=== PATIENT | female | born 1970 | race African-American/Black ===

== ENCOUNTER 2017-04-19 10:24 | Inpatient (IN) | payer OTHER ==
[~2017-04-19] VITALS: Ht 172.7 cm; Wt 71.7 kg
[~2017-04-19 10:24] MED LIST: ESKALITH300 M3 PO; ZYPREXA10 MG PO
[2017-04-19] MEDS ORDERED: NEURONTIN300 M1 PO (10:32)
--- NOTE | 2017-04-19 12:11 | NUR ---
Patient taken to bed 05 via wheelchair per pt caregiver.
--- NOTE | 2017-04-19 12:13 | NUR ---
PT BIB EXHUSBAND FOR EVALUATION OF INCREASED LETHARGY. PT'S EX STS PT WAS VERY HARD TO ROUSE THIS AM. HX PSYCHIATRIC DX. PT STS FELL 2 DAYS AGO PAIN HER HEAD & ABRASION L KNEE.DENIES LOC OR N/V/D; SKIN IS PINK/WARM/DRY; AAOX4 WITH EVEN AND STEADY GAIT; LUNGS CLEAR BL; HR EVEN AND REGULAR; PT DENIES ANY FEVER, CP, SOB, OR COUGH AT THIS TIME; PATIENT STATES PAIN OF 4/10 AT THIS TIME; VSS; PATIENT POSITIONED FOR COMFORT; HOB ELEVATED; BEDRAILS UP X2; BED DOWN. ER MD MADE AWARE OF PT STATUS.
--- NOTE | 2017-04-19 12:25 | NUR ---
Patient being evaluated by DR HUNG at bedside.
[2017-04-19] MEDS ORDERED: NACL 0.9% 1,000 ML IV ONE (13:15)
--- NOTE | 2017-04-19 13:15 | NUR ---
LAB AT BEDSIDE.
[2017-04-19] MEDS ORDERED: POTASSIUM CHLORIDE 20% 40 MEQ/15 ML UDC PO ONE (13:55)
[2017-04-19] MEDS ORDERED: KCL 20 MEQ/WATER INJ PREMIX 200 ML IV ONE ×2 (13:55→23:15)
--- NOTE | 2017-04-19 14:51 | NUR ---
PT TAKEN TO CT.
--- NOTE | 2017-04-19 15:00 | NUR ---
RECEIVED REPORT FROM ER NURSE. WILL GET ROOM READY AND AWAIT PT'S ARRIVAL.
--- NOTE | 2017-04-19 15:04 | NUR ---
REPORT TO ALEXANDRU AGUILAR.
--- NOTE | 2017-04-19 15:04 | NUR ---
Patient will be admitted to care of DR OCONNOR . Admited to TELE. Will go to room 123A. Belongings list completed. Report to ALEXANDRU AGUILAR.
--- NOTE | 2017-04-19 15:10 | NUR ---
ARRIVED ON THE UNIT WITH 2 ER NURSES. PT IS AWAKE AND ALERT. INTRODUCED OURSELVES AND UPDATED THE BOARD. PT IS 46/F. IV ON R HAND 24G, NS AND K-RIDER 1/2 IN INFUSING. ONCE 1 FINISHES, WILL START THE SECOND. SKIN IS INTACT. A SCAR ON L KNEE S/P A FALL 2 DAYS AGO. IT IS HEALED. WAS UNABLE TO GET A URINE SAMPLE IN ER. WILL GET ONE HERE. ADMINISTERED THE TELE MONITOR, YELLOW SOCK, ARM BAND, AND SIGN ON DOOR. MRSA SCREENING DONE. PT IS RESTING COMFORTABLY NOW. DENIES PAIN. WILL CONTINUE TO MONITOR PT.
[2017-04-19] MEDS: DEXT 5% /NACL 0.9% 1,000 ML IV SCH (15:35)
[2017-04-19] MEDS ORDERED: MORPHINE SULFATE 2 MG/ML SYR IVP PRN (15:55)
[2017-04-19] MEDS ORDERED: NACL 0.9% 1,000 ML IV SCH (15:55)
[2017-04-19] MEDS ORDERED: ONDANSETRON 4 MG/2 ML VIAL IVP PRN (15:55)
[2017-04-19] MEDS ORDERED: ACETAMINOPHEN 325 MG TAB PO PRN (15:55)
[2017-04-19 16:00] VITALS: BP 85/43
--- NOTE | 2017-04-19 17:10 | NUR ---
R/T HERE TO ASSESS PT. Addendum: 04/19/17 at 1802 by Summer Mansfield RN WRONG PT. DISREGARD NOTE.
--- NOTE | 2017-04-19 17:30 | NUR ---
MOLLY, DOCTOR OF NURSE ANESTHESIA PRACTICE STARTED 2 IV'S, ONE ON EACH ARM. R FA 20G AND L AC 22G. R FA, NS 1 L BOLUS INFUSING. L FA, D5NS AND KRIDER 1/2 IS INFUSING. PT TOLERATED WELL.
[2017-04-19] MEDS: NACL 0.9% 1,000 ML IV SCH (19:05)
--- NOTE | 2017-04-19 19:15 | NUR ---
RECEIVED REPORT FROM AM NURSE. PT IS AOX2, RESPONDS IN A SLOW MATTER. NO S/S OF DISTRESS. NO COMPLAINTS OF PAIN AT THIS TIME. WITH AN IV TO THE LEFT FA, 22 G RUNNING WITH THE FIRST BAG OF K RIDER, INTACT AND PATENT. WITH A RFA 20 G, INTACT AND PATENT. WITH A LEFT SCAB TO THE LEFT KNEE DUE TO A S/P FALL A FEW DAYS AGO. ON TELE MONITORING. REORIENTED PT TO THE UNIT, VERBALIZED UNDERSTANDING. WILL CONTINUE TO MONITOR. ALL NEEDS ATTENDED. CALL LIGHT WITHIN REACH. SAFETY CHECKS IN PLACE.
[2017-04-19 20:00] VITALS: BP 91/51
[2017-04-19] MEDS: GABAPENTIN 300 MG CAP PO SCH (20:19)
[2017-04-19] MEDS: OLANZapine 5 MG TAB PO SCH (20:20)
[2017-04-19] MEDS: LITHIUM CARBONATE 300 MG TAB PO SCH (20:20)
--- NOTE | 2017-04-19 20:20 | NUR ---
DUE MEDS GIVEN TO PATIENT, WELL TOLERATED BY PATIENT. WILL CONTINUE TO MONITOR FOR ANY CHANGES.
--- NOTE | 2017-04-19 21:50 | NUR ---
PAGED DR. HAGAN ([facility]) FOR CRITICAL LAB RESULT, AWAITING CALL BACK.
--- NOTE | 2017-04-19 22:06 | NUR ---
PAGED DR. OAKLEY AGAIN, AWAITING CALL BACK.
--- NOTE | 2017-04-19 22:12 | NUR ---
DR. OAKLEY PAGED BACK, TOLD HIM THE POTASSIUM LAB RESULT OF 2.5 AND THAT SHE IS CURRENTLY RUNNING ON HER SECOND BAG OF POTASSIUM 20 MEQS. NO CHANGE IN ORDERS. NOTED.
--- NOTE | 2017-04-19 22:55 | NUR ---
CHARGE NURSE MIRYAM TALKED TO DR. KAM CHUN IN REGARDS TO PT'S ORDER OF THE 24 HOUR COLLECTION, SAID THAT HE IS GOING TO CANCEL IT AND SAID THAT PT IS FOR STRAIGHT CATH FOR THE URINALYSIS. ALSO WILL ORDER FOR THE PT'S POTASSIUM LEVEL OF 2.5. NOTED AND CARRIED OUT.
[2017-04-20] VITALS (9 sets, daily range): BP systolic 88–122; BP diastolic 48–70
--- NOTE | 2017-04-20 | NUR ---
VITALS STABLE. NO S/S OF DISTRESS. NO COMPLAINTS OF PAIN. WILL CONTINUE TO MONITOR FOR ANY CHANGES.
[2017-04-20] MEDS: DEXT 5% /NACL 0.9% 1,000 ML IV SCH ×2 (01:55→11:55)
--- NOTE | 2017-04-20 02:05 | NUR ---
MADE ROUNDS. PT ASLEEP. NO S/S OF DISTRESS. NO COMPLAINTS OF PAIN. WILL CONTINUE TO MONITOR FOR CHANGES.
--- NOTE | 2017-04-20 04:00 | NUR ---
VITALS STABLE. NO S/S OF DISTRESS. NO COMPLAINTS OF PAIN. WILL CONTINUE TO MONITOR FOR ANY CHANGES.
[2017-04-20] MEDS: NACL 0.9% 1,000 ML IV SCH (05:05)
--- NOTE | 2017-04-20 07:05 | NUR ---
PAGED DR. CHUN AWAITING CALL BACK
--- NOTE | 2017-04-20 07:29 | NUR ---
ENDORSED TO AM SHIFT NURSE FOR CONTINUITY OF CARE IN STABLE CONDITION.
--- NOTE | 2017-04-20 07:32 | NUR ---
RECEIVED PATIENT REPORT AT BEDSIDE FROM NIGHT NURSE. PATIENT IS AAOX2 AND SHOWS NO S/S OF ACUTE DISTRESS ON ROOM AIR. PATIENT IV NOTED ON THE L FA AND R FA SL. IVF'S ARE NOT RUNNING AND FULL BAG OF POTASSIUM IS STILL NOT INFUSED. PER NIGHT NURSE LAB DRAWN FOR POTASSIUM WAS DONE AT 0500 AND 4TH BAG OF POTASSIUM WAS STILL NOT GIVEN AND HAS YET TO BE INFUSED. DR CHUN ORDERED TWO ADDITIONAL 20 MEQ POTASSIUM BAGS FOR 0800 FOR A POTASSIUM LEVEL OF 2.5. WILL NOTIFY [address] HAGAN AND/OR DR CHUN IF HE WOULD LIKE TO STILL ADMINISTER ORDERED BAGS OR PERFORM A LAB DRAW AFTER CURRENT BAG OF 20 MEQ POTASSIUM IS FINISHED. PATIENT IS DENIED PAIN. SKIN IS INTACT. ON TELE MONITOR. FALL PRECAUTION PROTOCOL IN PLACE. PATIENT HAS DELAYED SPEECH AND NEEDS CONSTANT REINFORCEMENT OF POC. BED IS LOWERED, BED ALARM ACTIVATED, AND CALL LIGHT WITHIN REACH. WILL CONTINUE TO MONITOR.
[2017-04-20] MEDS ORDERED: KCL 20 MEQ/WATER INJ PREMIX 100 ML IV SCH ×2 (08:00→11:00)
[2017-04-20] MEDS ORDERED: KCL 20 MEQ/WATER INJ PREMIX 200 ML IV SCH (08:00)
--- NOTE | 2017-04-20 08:00 | NUR ---
PATIENT BP IS 90/48 R ARM AND 88/70 L ARM. PATIENT PLACED ON [place] BP IS NOW 122/56. PATIENT IS ASYMPTOMATIC. DENIES DIZZINESS AND SOB. PATIENT WAS SAT UP AND IS EATING BREAKFAST. WILL CONTINUE TO MONITOR.
[2017-04-20] MEDS: GABAPENTIN 300 MG CAP PO SCH ×2 (08:37→20:48)
[2017-04-20] MEDS: LITHIUM CARBONATE 300 MG TAB PO SCH ×2 (08:40→20:48)
--- NOTE | 2017-04-20 08:45 | NUR ---
ADMINISTERED SCHEDULED MEDICATIONS. HELD LITHIUM 300 MG D/T LITHIUM LEVEL OF 1.4. WILL PAGE DR CHUN REGARDING POTASSIUM LEVEL OF 2.5 LAB DRAWN AT 0500 MAY NOT BE ACCURATE BC LAST POTASSIUM BAG WAS NOT ADMINISTERED UNTIL 0500. WILL RECOMMEND LAB DRAWN FOR POTASSIUM 30 MIN ONCE BAG IS DONE.
--- NOTE | 2017-04-20 08:50 | NUR ---
PATIENT HAD TROUBLE TAKING ALL 6 10 MEQ KDUR TABS. PATIENT HAD ONE AND STATED TO COME BACK TO ADMINISTER REST BC SHE FEELS LIKE SHE WILL THROW UP. WILL COME BACK IN 10 MIN.
[2017-04-20] MEDS ORDERED: POTASSIUM CHLORIDE 10 MEQ TABER PO SCH ×3 (09:00→16:08)
--- NOTE | 2017-04-20 09:00 | NUR ---
PATIENT STATED SHE WOULD LIKE TO FINISH BREAKFAST BEFORE TAKING THE REST OF KDUR MEDICATION.
--- NOTE | 2017-04-20 09:05 | NUR ---
PATIENT BP IS 111/70 SUPINE ON THE L ARM. PATIENT SHOWS NO S/S OF ACUTE DISTRESS WILL CONTINUE TO MONITOR.
--- NOTE | 2017-04-20 09:17 | NUR ---
DR VASQUEZ ALSO OKAYED TO HOLD LITHIUM DOSE THIS AM.
--- NOTE | 2017-04-20 09:17 | NUR ---
DR VASQUEZ CALLED BACK STATED COVERING FOR DR CHUN. DR ORDERED TO DC TWO ORDERED BAGS OF POTASSIUM SCHEDULED THIS AM. GIVE ONE BAG OF 20 MEQ POTASSIUM IV ONCE WITHOUT LIDOCAINE WHEN CURRENT BAG OF POTASSIUM IS FINISHED. ORDER BMP LAB DRAWN ONE HR AFTER LAST BAG OF POTASSIUM IS FINISHED. WILL FOLLOW THROUGH WITH ORDERS. STATED TO HOLD 60 MEQ K DUR FROM THIS AM MEDICATIONS. PATIENT HAS HAD ONE 10 MEQ KDUR WILL NOT ADMINISTER THE REST.
--- NOTE | 2017-04-20 10:32 | NUR ---
ADMINISTERED 20 MEQ POTASSIUM IV. WILL CONTINUE TO MONITOR.
[2017-04-20] MEDS ORDERED: POTASSIUM CHLORIDE 40 MEQ in DEXTROSE 5% 250 ML IV SCH (11:15)
--- NOTE | 2017-04-20 11:21 | NUR ---
PATIENT HAS BEEN SCREENED AND CATEGORIZED MODERATE NUTRITION RISK. PATIENT WILL BE SEEN WITHIN 3-5 DAYS OF ADMISSION. 04/22/17 - 04/24/[address]
--- NOTE | 2017-04-20 11:30 | NUR ---
SPOKE WITH DR OCONNOR REGARDING PATIENT'S ORDERS OF POTASSIUM HE PLACED. UPDATED DR ON PATIENT'S POTASSIUM ORDERS FROM DR VASQUEZ. DR OCONNOR ORDERED TO DC ALL HIS ORDERS OF POTASSIUM 40 MEQ KDUR THREE DOSES AND 40 MEQ POTASSIUM IN D5. WILL NOTIFY OF POTASSIUM WHEN LAB IS DRAWN AT 1400.
--- NOTE | 2017-04-20 13:30 | NUR ---
PATIENT IS SITTING UP EATING LUNCH AND SHOWS NO S/S OF ACUTE DISTRESS ON ROOM AIR. PATIENT DENIES PAIN AND SOB. THE BED IS LOWERED WITH CALL LIGHT WITHIN REACH, AND BED ALARM ACTIVATED.
--- NOTE | 2017-04-20 15:00 | NUR ---
PATIENT WAS SEEN BY DR VASQUEZ AND PATIENT WAS HARD TO AROUSE. PT IS LETHARGIC AND DROWSY. ORDERED TO NOTIFY DR OCONNOR. DR VASQUEZ ORDERED TO HAVE 40 MEQ KCL RIDER WITHOUT LIDOCAINE (2 BAGS), 40 MEQ KCL TABS, AND NS WITH 20 MEQ KCL AT 100 ML/HR AND BMP AT 2000. Addendum: 04/20/17 at 1954 by Lucy Yi RN DR VASQUEZ OKAYED TO DC NS @ 100 ML/HR, AND D5 NS @ 100 ML/HR. Addendum: 04/21/17 at 06 by Lucy Yi RN DR VASQUEZ ALSO ORDERED TO DC ORDER FOR KDUR 60 MEQ PO.
--- NOTE | 2017-04-20 15:10 | NUR ---
PATIENT IS SLEEPING AND SHOWS NO S/S OF ACUTE DISTRESS ON ROOM AIR. THE BED IS LOWERED WITH CALL LIGHT WITHIN REACH, BED ALARM ACTIVATED.
--- NOTE | 2017-04-20 16:30 | NUR ---
NOTIFIED DR VASQUEZ PT IS AAOX2 AND INCONTINENT AND WOULD BENEFIT TO HAVE A GUERRA CATHETER DURING 24HR COLLECTION OF URINE. DR DAVENPORTED TO ORDERED INSERT GUERRA CATHETER.
[2017-04-20] MEDS: POTASSIUM CHL 20 MEQ/NACL 0.9% 1,000 ML IV SCH (16:38)
--- NOTE | 2017-04-20 16:38 | NUR ---
ADMINISTERED SCHEDULED MEDICATIONS. PATIENT COULD NOT TAKE 40 MEQ KDUR TAB, DR VASQUEZ WAS NOTIFIED AND OKAY TO CHANGE TO LIQUID FORM.
[2017-04-20] MEDS: KCL 20 MEQ/WATER INJ PREMIX 200 ML IV SCH ×2 (16:48→20:03)
[2017-04-20] MEDS ORDERED: POTASSIUM CHLORIDE 20% 40 MEQ/15 ML UDC PO SCH (16:59)
--- NOTE | 2017-04-20 17:00 | NUR ---
SPOKE TO DR OCONNOR AND NOTIFIED OF PT'S BRIEF TACHYCARDIA OF 130 HR. WAS ALSO NOTIFIED OF PT BEING LETHARGIC AND ORDERED CT HEAD WITHOUT CONTRAST. PATIENT IS CURRENTLY BEING SEEN BY FAMILY FRIEND AND IS AWAKE AND ALERT AND SHOWS NO S/S OF ACUTE DISTRESS AT THIS TIME WILL CONTINUE TO MONITOR.
--- NOTE | 2017-04-20 17:45 | NUR ---
BEGAN 24 HR URINE COLLECTION. INSERTED GUERRA CATHETER AND DISCARDED FIRST VOID.
--- NOTE | 2017-04-20 18:00 | NUR ---
PATIENT IS AAOX2 AND SHOWS NO S/S OF ACUTE DISTRESS ON ROOM AIR. PT DENIES PAIN AND SOB. THE BED IS LOWERED WITH CALL LIGHT WITHIN REACH. PT ASKED FOR PRUNE JUICE. ALL NEEDS MET AT THIS TIME. WILL CONTINUE TO MONITOR.
--- NOTE | 2017-04-20 19:15 | NUR ---
RECD. RESTING IN BED, AWAKE, A/OX2. RESPIRATION EVEN AND UNLABORED, SEEMS DROWSY. K RIDER INFUSING AT 50 ML/HR, IV SITE RIGHT FOREARM, G22. SAFETY MEASURES ENFORCED. CALL LIGHT WITHIN REACH. INSTRUCTED TO CALL NURSE FOR HELP BEFORE GETTING OUT OF BED, VERBALIZED UNDERSTANDING. F/C PATENT DRAINING SLIGHTLY CLOUDY URINE. ON 24 HOURS URINE COLLECTIONS. DENIES PAIN 0/10.
--- NOTE | 2017-04-20 20:04 | NUR ---
ADMINISTERED SECOND BAG OF POTASSIUM. ADMINISTERED LATE, PER AM NURSE MEDICATION CAME LATE.
--- NOTE | 2017-04-20 20:30 | NUR ---
Patient's Plan of Care was discussed and reviewed with HOME SERVICE ADVISOR: FERNANDO SHARMA
[2017-04-20] MEDS: OLANZapine 5 MG TAB PO SCH (20:48)
--- NOTE | 2017-04-20 22:05 | NUR ---
K-HUMPHREY FINISHED, BMP TAKEN BY Gopeers.-
--- NOTE | 2017-04-20 23:50 | NUR ---
REQUESTED NIGHT MEDICATIONS TO BE CRUSHED AND TAKEN WITH APPLE SAUCE, STATED I WILL VOMIT IF IT IS SOLID.
--- NOTE | 2017-04-20 23:55 | NUR ---
INFORMED DR. VINSON PATIENT WANTS PAIN MEDICATION, BP IS IN THE LOW SIDE, ORDERED TRAMADOL. RESULT OF K LEVEL MADE AWARE, 3.6.
[2017-04-21] VITALS: BP 90/51
[2017-04-21] MEDS ORDERED: traMADol 50 MG TAB PO PRN
--- NOTE | 2017-04-21 01:30 | NUR ---
SLEEPING COMFORTABLY IN BED.
[2017-04-21] MEDS: POTASSIUM CHL 20 MEQ/NACL 0.9% 1,000 ML IV SCH (02:18)
[2017-04-21 04:00] VITALS: BP 98/50
--- NOTE | 2017-04-21 06:00 | NUR ---
WAKEN UP FOR CT HEAD TO RADIOLOGY, PATIENT JUST STARING. TO RADIOLOGY VIA BED, INSTEAD OF W/C ACCOMPANIED BY TECH AND DEMURRAGE AGENT.
--- NOTE | 2017-04-21 06:30 | NUR ---
BACK TO ROOM FROM RADIOLOGY. COMPLAINT OF DRYNESS IN THE THROAT, WATER GIVEN REQUESTED. MADE COMFORTABLE IN BED WITH PILLOWS.
--- NOTE | 2017-04-21 07:30 | NUR ---
RECEIVED REPORT FROM PM NURSE FOR CONTINUITY OF CARE. PT SLEEPING, EASILY AWAKENS. RESP EVEN AND UNLABORED. NO S/S OF DISTRESS. INITIAL ASSESSMENT IS DONE. IV INTACT, NO REDNESS OR SWELLING NOTED. SKIN IS WARM AND DRY. PT DENIES DISCOMFORT OR ANY FURTHER NEEDS AT THIS TIME. PLAN OF CARE DISCUSSED WITH PT, PT VERBALIZED UNDERSTANDING. SAFETY MEASURES IN PLACED. SIDE RAILS UP, BED LOCKED ON LOW POSITION, CALL LIGHT WITHIN REACH. WILL CONTINUE TO MONITOR.
[2017-04-21 08:00] VITALS: BP 86/47
--- NOTE | 2017-04-21 09:10 | NUR ---
PT SLEEPING, EASILY AWAKENS. NO S/S OF DISTRESS. RESP EVEN AND UNLABORED. SAFETY MEASURES IN PLACED. WILL CONTINUE TO MONITOR.
[2017-04-21] MEDS: LITHIUM CARBONATE 300 MG TAB PO SCH ×2 (09:28→22:24)
[2017-04-21] MEDS: GABAPENTIN 300 MG CAP PO SCH ×2 (09:28→22:23)
[2017-04-21] MEDS: NACL 0.9% 1,000 ML IV SCH (10:20)
[2017-04-21 12:00] VITALS: BP 105/62
--- NOTE | 2017-04-21 12:00 | NUR ---
PT RESTING IN BED. DENIES DISCOMFORT OR ANY FURTHER NEEDS AT THIS TIME. NO S/S OF DISTRESS. RESP EVEN AND UNLABORED. SAFETY MEASURES IN PLACED. WILL CONTINUE TO MONITOR.
[2017-04-21] MEDS ORDERED: ESKALITH300 M3 PO (12:10)
--- NOTE | 2017-04-21 12:11 | NUR ---
FAXED CONCURRENT REVIEW TO [facility] [phone] PHONE SHERYL [phone]
--- NOTE | 2017-04-21 14:40 | NUR ---
PT IN BED. DENIES DISCOMFORT OR ANY FURTHER NEEDS AT THIS TIME. NO S/S OF DISTRESS. RESP EVEN AND UNLABORED. SAFETY MEASURES IN PLACED. WILL CONTINUE TO MONITOR.
[2017-04-21 16:00] VITALS: BP 102/53
--- NOTE | 2017-04-21 16:45 | NUR ---
NOTIFIED PT'S FAMILY MEMBER OLE CRYSTAL, PT TO BE DISCHARGED. PT'S FAMILY MEMBER STATED HE'LL BE HERE AFTER 1800.
--- NOTE | 2017-04-21 17:50 | NUR ---
24 HR URINE COLLECTION TO THE LAB.
--- NOTE | 2017-04-21 18:50 | NUR ---
PT'S FAMILY MEMBER AT BEDSIDE, HE STATED THAT PT IS TOO WEAK TO BE DISCHARGED AND PT'S CAREGIVER WONT BE AVAILABLE TO TAKE CARE OF HER UNTIL THURSDAY. PAGED DR OCONNOR, AWAITING FOR ORDERS.
--- NOTE | 2017-04-21 19:10 | NUR ---
NOTIFIED DR RODRIGUEZ. PER DR VINSON, HE WILL CALL DR OCONNOR. AWAITING FOR ORDERS.
--- NOTE | 2017-04-21 19:50 | NUR ---
RECEIVED REPORT FROM AM NURSE. PT IS SLEEPING. SHOWING NO SIGN SOF ACUTE DISTRESS. IV ACCESS ASYMPTOMATIC AND PATENT. GUERRA IN PLACE. ON ROOM AIR. BED ON LOW POSITION, BILATERAL HALF SIDE RAILS UP, CALL LIGHT WITH IN REACH, WILL CONTINUE TO MONITOR.
--- NOTE | 2017-04-21 20:12 | NUR ---
ENDORSED CARE TO PM NURSE FOR CONTINUITY OF CARE. PT IS STABLE. Addendum: 04/21/17 at 2016 by Ulysses Alvarado RN ENDORSED CARE TO ALEXANDRU SAGASTUME. EXPLAINED TO HER PT'S SITUATION. AWAITING FOR ORDERS FROM DR OCONNOR.
[2017-04-21] MEDS: OLANZapine 5 MG TAB PO SCH (22:24)
[2017-04-22] VITALS: BP 94/51
--- NOTE | 2017-04-22 02:13 | NUR ---
PT SLEEPING. SHOWING NO SIGNS OF ACUTE DISTRESS, BED ON LOW POSITION, BILATERAL HALF SIDE RAILS UP, CALL LIGHT WITHIN REACH. WILL CONTINUE TO MONITOR
[2017-04-22 04:00] VITALS: BP 121/84
--- NOTE | 2017-04-22 06:52 | NUR ---
PT IS SLEEPING. SHOWING NO SIGN SOF ACUTE DISTRESS. BED ON LOW POSITION, BILATERAL HALF SIDE RAILS UP, CALL LIGHT WITH IN REACH, WILL CONTINUE TO MONITOR
--- NOTE | 2017-04-22 07:10 | NUR ---
RECEIVED REPORT FROM MICA MINER RN. PATIENT SLEEPING AT THIS TIME. NO SIGNS AND SYMPTOMS OF DISTRESS NOTED AT THIS TIME. BED ALARM ON, BED IN LOWEST POSITION, SIDERAILS UP, CALL LIGHT PLACED WITHIN REACH. PATIENT IS ALERT AND ORIENTED X2, REINFORCED CALL LIGHT. WILL CONTINUE TO MONITOR PATIENT.
--- NOTE | 2017-04-22 07:30 | NUR ---
ENDORSED PATIENT TO DERMATOLOGIST RN FOR CONTINUITY OF CARE. PATIENT IS STABLE.
[2017-04-22 08:00] VITALS: BP 75/32
--- NOTE | 2017-04-22 08:20 | NUR ---
PATIENT BLOOD PRESSURE 75/46, SHOWS NO SIGNS OF DISTRESS AT THIS TIME. WILL NOTIFY THE DOCTOR AND RECHECK BLOOD PRESSURE.
--- NOTE | 2017-04-22 08:50 | NUR ---
DR OCONNOR ORDERED TO GIVE A BOLUS OF NS FOR PATIENT AND TO HOLD THE LITHIUM AND GABAPENTIN AT THIS TIME DUE TO LOWERED BP. WILL FOLLOW THROUGHT WITH ORDERS.
[2017-04-22] MEDS: LITHIUM CARBONATE 300 MG TAB PO SCH ×2 (09:00→21:24)
--- NOTE | 2017-04-22 09:30 | NUR ---
PATIENT BP INCREASED TO 103/60 AT THIS TIME. WILL CONTINUE TO MONITOR.
[2017-04-22] MEDS ORDERED: NACL 0.9% 500 ML IV SCH (09:45)
[2017-04-22] MEDS: NACL 0.9% 1,000 ML IV SCH (10:20)
[2017-04-22 12:00] VITALS: BP 113/65
--- NOTE | 2017-04-22 15:53 | NUR ---
PER PT SHE IS IN AGREEMENT WITH GOING TO A SNF IN [place]. INFORMED HER OF [facility] AND SHE STATED THAT WAS CLOSER FOR HER AND IN AGREEMENT. SPOKE WITH AVERY AT [facility] AND FAXED INFORMATION REQUIRED [phone] PT ACCEPTED FOR ADMISSION AND WILL GO TO ROOM 222 C. SPOKE WITH SHERYL BRADLEY [facility] AND RECEIVED AUTHORIZATION FOR [facility] [id number].
[2017-04-22 16:00] VITALS: BP 124/81
--- NOTE | 2017-04-22 19:37 | NUR ---
PT. AWAKE AND ALERT. NO SOB. NO COMPLAINTS OF ANY PAIN. GETTING READY TO BE DISCHARGED TO SNF. PT. AWARE OF IT.
--- NOTE | 2017-04-22 19:54 | NUR ---
INFORMED MD VINSON DECONTAMINATION TECHNICIAN FOR MD OCONNOR THAT PT. WAS ASSISSTED BY EX TO THE BEDSIDE COMMODE AND APPARENTLY WAS WEAK AND KNEELED DOWN ON THE FLOOR INSTEAD. PER PT. SHE DOESN'T HURT ANYWHERE WITNESSED BY EX AND HEARD CONVERSATION . "I AM STILL GOING TO SNF" PER MD VINSON"OK TO DISCHARGE " INFORMED CHARGE NURSE AND PT. RE MD CALL .
--- NOTE | 2017-04-22 20:30 | NUR ---
CALLED [facility] AND GAVE REPORT TO BARB.
[2017-04-22] MEDS: GABAPENTIN 300 MG CAP PO SCH ×2 (21:24→21:33)
[2017-04-22] MEDS: OLANZapine 5 MG TAB PO SCH (21:25)
[2017-04-22 22:02] VITALS: BP 126/80
--- NOTE | 2017-04-22 22:06 | NUR ---
PROVIDED WITH APPLE SAUCE, VANILLA SORBET AND APPLE JUICE REQUESTED. NO FURTHER REQUEST DONE. "I WILL GO BACK TO SLEEP " WAITING FOR TRANSPORT FOR PT. TO BE TRANSFERRED TO SNF. REPORT TO SNF GIVEN BY IZZY HORVATH.
--- NOTE | 2017-04-23 00:04 | NUR ---
[facility] IN HERE TO PATTERN CHECKER PT. FOR TRANSFER TO [facility] PLANNED. IVF DISCONTINUED WITH TIP INTACT. TOLERATED WELL. COVERED WITH BAND AID. NO BLEEDING NOTED. TIP INTACT. GUERRA CATHETER REMOVED. TIP INTACT AND TOLERATED WELL. ALL BELONGINGS ENDORSED TO THE PARAMEDICS. NOTHING LEFT BEHIND. REPORT GIVEN TO SNF FORGE TENDER NURSE BY AM RN. FAMILY BEEN AWARE OF TRANSFER PER AM RN. PT. SLEEPY. ABLE TO VERBALIZE SIMPLE NEEDS.
== END 2017-04-23 00:02 | DRG 469 ==
LOC: MED 10:24 → MTU 15:19
PROVIDERS: ADMIT Internal Medicine Pulmonary Disease; ATTEND Internal Medicine Pulmonary Disease
DX: N17.9 Acute kidney failure, unspecified (principal); G93.41 Metabolic encephalopathy; E87.3 Alkalosis; I95.9 Hypotension, unspecified; E83.52 Hypercalcemia; G72.9 Myopathy, unspecified; E86.0 Dehydration; E87.6 Hypokalemia; F29 Unspecified psychosis not due to a substance or known physiological condition; F31.9 Bipolar disorder, unspecified; T43.595A Adverse effect of other antipsychotics and neuroleptics, initial encounter; D72.829 Elevated white blood cell count, unspecified; D64.9 Anemia, unspecified; Z90.710 Acquired absence of both cervix and uterus; Z79.899 Other long term (current) drug therapy

== ENCOUNTER 2017-05-09 21:48 | Inpatient (IN) | payer OTHER ==
[~2017-05-09] VITALS: Ht 172.7 cm; Wt 85.7 kg
[~2017-05-09 21:48] MED LIST changes: +ESK300 PO; -ESKALITH300 M3 PO; +GABA300C1 PO; +OLAN10TA PO; -ZYPREXA10 MG PO
[2017-05-09 21:52] VITALS: BP 129/83
--- NOTE | 2017-05-09 21:55 | NUR ---
BIBA TO ER BED 4
[2017-05-09] MEDS ORDERED: ACET-1195 PO (22:04)
[2017-05-09] MEDS ORDERED: NA P133E RC (22:04)
[2017-05-09] MEDS ORDERED: MAGN400S60 PO (22:04)
[2017-05-09] MEDS ORDERED: ESK300 PO (22:04)
[2017-05-09] MEDS ORDERED: BISA-213 RC (22:04)
--- NOTE | 2017-05-09 22:05 | NUR ---
BIBA C/O UNCONTROLLED TREMORS FOR 4 DAYS WITH BILATERAL LEG, AND FOOT PAIN. PATIENT ALERT AWAKE, ORIENTED,
--- NOTE | 2017-05-09 22:25 | NUR ---
Patient being evaluated by physician at bedside.
[2017-05-09 22:39] LABS: BASOPHILS # (AUTO) 0.1 K/uL (0.00-0.22); BASOPHILS % (AUTO) 1.1 % (0.0-2.0); EOSINOPHILS # (AUTO) 0.1 K/uL (0-0.4); EOSINOPHILS % (AUTO) 1.3 % (0.0-4.0); HEMATOCRIT 32.1 % (36-48); HEMOGLOBIN 10.2 g/dL (12.0-16.0); LYMPHOCYTES # (AUTO) 1.9 K/uL (2.5-16.5); LYMPHOCYTES % (AUTO) 17.9 % (20.5-51.1); MEAN CORPUSCULAR HEMOGLOBIN 29 pg (27-31); MEAN CORPUSCULAR HGB CONC 32 g/dL (33-37); MEAN CORPUSCULAR VOLUME 89 fL (80-94); MONOCYTES % (AUTO) 9.4 % (1.7-9.3); NEUTROPHILS # (AUTO) 7.5 K/uL (1.8-7.7); NEUTROPHILS % (AUTO) 70.3 % (42.2-75.2); PLATELET COUNT (AUTO) 472 K/uL (140-450); RED BLOOD CELL COUNT(AUTO) 3.59 MIL/uL (4.20-5.40); RED CELL DISTRIBUTION WIDTH 14.8 % (11.6-13.7); WHITE BLOOD COUNT (AUTO) 10.6 K/uL (4.8-10.8)
[2017-05-09] MEDS ORDERED: clonazePAM 0.5 MG TAB PO ONE (22:40)
[2017-05-09] MEDS ORDERED: cloNIDine 0.1 MG TAB PO ONE (22:45)
[2017-05-09 22:51] LABS: ANION GAP 11.4 (8-16); CARBON DIOXIDE 29.9 mmol/L (21-32); CREATININE 0.9 mg/dL (0.6-1.3); POTASSIUM 3.3 mmol/L (3.5-5.1)
[2017-05-09 22:56] LABS: ALBUMIN 3.5 g/dL (3.4-5.0); TOTAL BILIRUBIN 0.4 mg/dL (0.0-1.0)
--- NOTE | 2017-05-10 00:01 | NUR ---
Patient appears to be resting comfortably in bed. Vital Signs within normal limits. Respirations even and unlabored.
--- NOTE | 2017-05-10 00:31 | NUR ---
Patient will be admitted to care of DR VINSON. Admited to TELEMETRY 23 HOUR OBSERVATION. Will go to [id number] B. Belongings list completed.
[2017-05-10] MEDS ORDERED: DEXT 5% / NACL 0.45% 1,000 ML IV ONE (00:40)
--- NOTE | 2017-05-10 00:40 | NUR ---
REPORT GIVEN TO JEFFREY HORVATH.
[2017-05-10 01:00] VITALS: BP 100/61
--- NOTE | 2017-05-10 01:00 | NUR ---
RECEIVED PT FROM ER VIA AURY PT IS AAOX4 WITH AKINESIA O;N; CONSTANTLY MOVING DENIES ANY PAIN OR DISCOMFORT ON TELEMETRY ST , LEFT KNEE SCAB, IV ON RT HAND PATENT, PT IS ORIENTED TO THE FLOOR CALL LIGHT WITHIN REACH
--- NOTE | 2017-05-10 01:12 | NUR ---
AT 0112 IV FLUIDS D5 1/2 NS STARTED INFUSING AT 70 ML/H ON RT HAND
--- NOTE | 2017-05-10 01:45 | NUR ---
DR PUGH CALL AND ORDERS TO FOLLOW
[2017-05-10 04:00] VITALS: BP 130/78
--- NOTE | 2017-05-10 04:00 | NUR ---
PT RESTING ON BED WITH AKINESIA ON TELEMETRY ST REPOSITIONED Q2H IV ON RT HAND INFUSING WELL
[2017-05-10] MEDS ORDERED: ACETAMINOPHEN 325 MG TAB ONE (05:54)
--- NOTE | 2017-05-10 05:59 | NUR ---
TYLENOL PO 650 MG GIVE ORDER
[2017-05-10] MEDS ORDERED: ACETAMINOPHEN 325 MG TAB PO ONE (06:00)
--- NOTE | 2017-05-10 06:50 | NUR ---
PT REMAIN STABLE DENIES ANY PAIN AT THIS TIMEM, ON TELEMETRY ST 104
--- NOTE | 2017-05-10 07:05 | NUR ---
RECEIVED REPORT AT BEDSIDE FROM NIGHT ALEXANDRU MURPHY. PT RESTING IN BED. NO S/S OF ACUTE DISTRESS. AAOX4. PT DENIES PAIN AT THIS TIME. IV SITE PATENT AND INTACT. PT STATES SHE IS UNABLE TO FEEL HER LEGS BELOW HER KNEES, PT UNABLE TO WIGGLE TOES. WILL NOTIFY DR. VINSON. PLAN OF CARE DISCUSSED WITH PT. PT VERBALIZED UNDERSTANDING. TELE IN PLACE. CALL LIGHT WITHIN REACH. SAFETY MEASURES ENSURED. WILL CONTINUE TO MONITOR.
[2017-05-10 07:31] VITALS: BP 149/93
[2017-05-10] MEDS: clonazePAM 0.5 MG TAB PO SCH ×3 (08:26→17:13)
--- NOTE | 2017-05-10 08:39 | NUR ---
AM MEDICATIONS GIVEN WITH EDUCATION. PT VERBALIZED UNDERSTANDING. PT PLACED ON BEDPAN.
[2017-05-10] MEDS ORDERED: clonazePAM 0.5 MG TAB PO ONE (09:00)
[2017-05-10] MEDS ORDERED: LITHIUM CARBONATE 300 MG TAB PO SCH (09:00)
[2017-05-10] MEDS ORDERED: ONDANSETRON 4 MG/2 ML VIAL IVP PRN (09:00)
[2017-05-10] MEDS ORDERED: BISACODYL 10 MG SUPP RC PRN (10:30)
[2017-05-10] MEDS ORDERED: MAGNESIUM HYDROXIDE 2400 MG/30 ML UDC PO PRN (10:30)
--- NOTE | 2017-05-10 11:54 | NUR ---
PT SLEEPING IN BED. NO S/S OF ACUTE DISTRESS. CALL LIGHT WITHIN REACH. WILL CONTINUE TO MONITOR.
[2017-05-10 12:00] VITALS: BP 143/95
--- NOTE | 2017-05-10 14:22 | NUR ---
PT SLEEPING IN BED. NO S/S OF ACUTE DISTRESS. CALL LIGHT WITHIN REACH. WILL CONTINUE TO MONITOR.
[2017-05-10 16:00] VITALS: BP 149/94
--- NOTE | 2017-05-10 16:31 | NUR ---
PT SLEEPING IN BED. NO S/S OF ACUTE DISTRESS. CALL LIGHT WITHIN REACH. SAFETY MEASURES ENSURED. WILL CONTINUE TO MONITOR.
--- NOTE | 2017-05-10 19:14 | NUR ---
ENDORSED PLAN OF CARE TO NIGHT RN. PT REMAINS STABLE.
--- NOTE | 2017-05-10 19:15 | NUR ---
RECEIVED REPORT FROM AM NURSE. PT IS SLEEPING, EASY TO AROUSE. ON ROOM AIR. NO SIGNS OF ACUTE DISTRESS NOTED. SCD'S IN PLACE. ON TELE MONITOR. IV ACCESS PATENT AND ASYMPTOMATIC. BED ON LOW POSITION, BILATERAL HALF SIDE RAILS UP, CALL LIGHT WITHIN REACH, WILL CONTINUE TO MONITOR.
[2017-05-10 20:00] VITALS: BP 153/99
[2017-05-10] MEDS: GABAPENTIN 300 MG CAP PO SCH (20:01)
[2017-05-10] MEDS: LITHIUM CARBONATE 300 MG TAB PO SCH (20:01)
[2017-05-10] MEDS: BENZTROPINE 1 MG TAB PO SCH (20:01)
--- NOTE | 2017-05-10 21:50 | NUR ---
IV ACCESS ON RIGHT HAND CAME OUT AND DISCONTINUED. NEW IV ACCESS STARTED ON THE LEFT HAND, 22G ASYMPTOMATIC AND PATENT. PT TOLERATED WELL. WILL CONTINUE TO MONITOR.
--- NOTE | 2017-05-10 23:45 | NUR ---
PT IS SLEEPING, EASY TO AROUSE. NO SIGNS OF ACUTE DISTRESS. BED ON LOW POSITION, BILATERAL HALF SIDE RAILS UP, CALL LIGHT WITHIN REACH, WILL CONTINUE TO MONITOR.
[2017-05-11] VITALS: BP 132/86
--- NOTE | 2017-05-11 02:51 | NUR ---
PT IS AWAKE, RESTING IN BED. NO SIGNS OF ACUTE DISTRESS. BED ON LOW POSITION, BILATERAL HALF SIDE RAILS UP, CALL LIGHT WITHIN REACH, WILL CONTINUE TO MONITOR.
[2017-05-11 04:00] VITALS: BP 149/96
[2017-05-11 06:14] LABS: ANION GAP 7.4 (8-16); CARBON DIOXIDE 31.4 mmol/L (21-32); CREATININE 0.8 mg/dL (0.6-1.3)
[2017-05-11 06:26] LABS: POTASSIUM 2.8 mmol/L (3.5-5.1)
--- NOTE | 2017-05-11 06:39 | NUR ---
DR HARE CALLED BACK AND WAS NOTIFIED OF PT LOW POTASSIUM 2.8. NEW ORDER OF K-DUR AND K-RIDER TO BE ADMINISTERED. NOTED, WILL CARRY OUT.
[2017-05-11] MEDS ORDERED: KCL 20 MEQ/WATER INJ PREMIX 200 ML IV SCH (07:00)
--- NOTE | 2017-05-11 07:35 | NUR ---
ENDORSED PT TO AM NURSE. PT IN STABLE CONDITION.
--- NOTE | 2017-05-11 07:36 | NUR ---
RECEIVED REPORT FROM HELP DESK ADMINISTRATOR NURSE AT BEDSIDE FOR CONTINUITY OF CARE. PT IS SLEEPING RIGHT NOW. IN STABLE CONDITION. WILL CONTINUE WITH PLAN AND MONITOR PT.
[2017-05-11 08:00] VITALS: BP 117/88
[2017-05-11] MEDS: POTASSIUM CHLORIDE 10 MEQ TABER PO SCH ×2 (08:32→13:03)
[2017-05-11] MEDS: LITHIUM CARBONATE 300 MG TAB PO SCH ×2 (08:32→20:45)
[2017-05-11] MEDS: GABAPENTIN 300 MG CAP PO SCH ×2 (08:32→20:45)
[2017-05-11] MEDS: clonazePAM 0.5 MG TAB PO SCH ×3 (08:34→16:31)
[2017-05-11] MEDS: BENZTROPINE 1 MG TAB PO SCH ×2 (08:35→20:45)
--- NOTE | 2017-05-11 09:51 | NUR ---
PATIENT HAS BEEN SCREENED AND CATEGORIZED MODERATE NUTRITION RISK. PATIENT WILL BE SEEN WITHIN 3-5 DAYS OF ADMISSION. 05/13/17-05/15/[address]
[2017-05-11 11:18] LABS: APPEARANCE,URINE HAZY (CLEAR); BILIRUBIN,URINE NEGATIVE (NEGATIVE); BLOOD, URINE NEGATIVE (NEGATIVE); COLOR,URINE YELLOW (YELLOW); LEUKOCYTE ESTERASE ,URINE 2+ (NEGATIVE); NITRITE, URINE POSITIVE (NEGATIVE); PH,URINE 6.5 (5.0-9.0); UGLUCOSE NEGATIVE (NEGATIVE)
[2017-05-11 11:26] LABS: BARBITURATE, URINE NEG. ng/ml (NEG <=200); BENZODIAZEPINE, URINE NEG. ng/mL (NEG <=200); CANNABINOID, URINE NEG. ng/mL (NEG <=50); COCAINE, URINE NEG. ng/mL (NEG <=300); OPIATE, URINE NEG. ng/mL (NEG <=2000); PHENCYCLIDINE SCREEN,URINE NEG. ng/mL (NEG <=25)
[2017-05-11 11:27] LABS: RBC,URINE 0-5 (RARE) /HPF (0-5); WBC,URINE 20-60 /HPF (0-5)
[2017-05-11 12:00] VITALS: BP 140/88
--- NOTE | 2017-05-11 15:06 | NUR ---
CM NOTE INITIAL REVIEW FAXED TO [facility] / FAX# [phone], ATTN: SHERYL #[phone]
--- NOTE | 2017-05-11 15:48 | NUR ---
CHECKED ON PT IN ROOM. PT'S EX- WHO STATED HE IS ALSO CAREGIVER OF PT IS IN ROOM. UPDATED ON STATUS OF PT AND THAT DR. KAMARA STILL NEEDS TO SEE PT. EX- AWARE AND VERBALIZED UNDERSTANDING. PT IS SITTING UP IN BED RIGHT NOW. NO SIGNS OF DISTRESS. WILL CONTINUE TO MONITOR.
[2017-05-11 16:00] VITALS: BP 137/68
[2017-05-11] MEDS: ACETAMINOPHEN EXTRA STRENGTH 500 MG TAB PO PRN ×2 (16:31→20:49)
--- NOTE | 2017-05-11 19:05 | NUR ---
ENDORSED PT TO CARTON STAMPER NURSE AT BEDSIDE FOR CONTINUITY OF CARE. PT IN STABLE CONDITION.
--- NOTE | 2017-05-11 19:07 | NUR ---
RECEIVED REPORT FROM AM NURSE. PT IS AAOX4, ON ROOM AIR. NO SIGNS OF ACUTE DISTRESS NOTED. SCD'S IN PLACE. ON TELE MONITOR. BED ON LOW POSITION, BILATERAL HALF SIDE RAILS UP, CALL LIGHT WITHIN REACH, WILL CONTINUE TO MONITOR.
[2017-05-11 20:00] VITALS: BP 151/84
--- NOTE | 2017-05-11 23:27 | NUR ---
PT IS SLEEPING, EASY TO AROUSE. NO SIGNS OF ACUTE DISTRESS, BED ON LOW POSITION, BILATERAL HALF SIDE RAILS UP, CALL LIGHT WITHIN REACH, WILL CONTINUE TO MONITOR.
[2017-05-12] VITALS (7 sets, daily range): BP systolic 102–148; BP diastolic 45–114
[2017-05-12 06:06] LABS: CARBON DIOXIDE 29.6 mmol/L (21-32); CREATININE 0.8 mg/dL (0.6-1.3)
[2017-05-12 06:17] LABS: ANION GAP 7.9 (8-16); POTASSIUM 3.5 mmol/L (3.5-5.1)
--- NOTE | 2017-05-12 07:23 | NUR ---
ENDORSED PT TO AM NURSE. PT IS IN STABLE CONDITION.
--- NOTE | 2017-05-12 07:25 | NUR ---
RECEIVED PT REPORT AT BEDSIDE FROM NIGHT NURSE AT BEDSIDE. PT IS AAOX2 AND SHOWS NO S/S OF ACUTE DISTRESS ON RA. NOTED IV ON THE R FA SL. NOTED HEALED SCAR ON THE LEFT KNEE; OTHERWISE, SKIN IS INTACT. ON TELE MONITORING. SCD'S IN PLACE. FALL RISK PROTOCOL IN PLACE. PT DENIES PAIN. PT WAS EXPLAINED POC FOR TODAY AND SHE VERBALIZED UNDERSTANDING. THE BED IS IN LOW POSITION WITH BED ALARM ACTIVATED, AND CALL LIGHT WITHIN REACH. WILL CONTINUE TO MONITOR.
[2017-05-12] MEDS: LITHIUM CARBONATE 300 MG TAB PO SCH ×2 (09:00→20:36)
[2017-05-12] MEDS: BENZTROPINE 1 MG TAB PO SCH ×2 (09:56→20:35)
[2017-05-12] MEDS: GABAPENTIN 300 MG CAP PO SCH ×2 (09:56→20:35)
[2017-05-12] MEDS: ACETAMINOPHEN EXTRA STRENGTH 500 MG TAB PO PRN ×2 (09:57→17:22)
[2017-05-12] MEDS: clonazePAM 0.5 MG TAB PO SCH ×3 (09:59→17:21)
--- NOTE | 2017-05-12 10:00 | NUR ---
ADMINISTERED SCHEDULED MEDICATIONS EXCEPT FOR LITHIUM 300 MG PO BC LITHIUM LEVELS ARE STILL PENDING. SPOKE WITH DR VINSON AND STATED TO HOLD ON ADMINISTERING LITHIUM 300 MG PO MEDICATION UNTIL LAB LEVELS ARE POSTED. PT'S OTHER MEDICATIONS WERE CRUSHED AND GIVEN WITH APPLESAUCE AND SIPS OF WATER. PT STATED SHE CANNOT SWALLOW LARGE FOODS AND PILLS AND IS AWARE ST WILL BE IN TO SEE HER TODAY. PT HAD STATED SHE HAS NOT HAD A BM AND DOES NOT REMEMBER THE LAST TIME SHE HAD ONE. PT HAS DULCOLAX PRN FOR CONSTIPATION. WHILE INSPECTING ANUS PT HAD LOOSE STOOL. PT WAS GIVEN PERINEAL CARE AND WAS ASKED IF SHE WOULD STILL LIKE TO TAKE THE MEDICATION FOR CONSTIPATION OR HAVE A BEDPAN TO PASS A BM. PT REFUSED DULCOLAX AND PREFERRED TO HAVE A BEDPAN. ALL NEEDS MET AT THIS TIME. THE BED IS LOWERED WITH CALL LIGHT WITHIN REACH.
--- NOTE | 2017-05-12 13:38 | NUR ---
FAXED CONCURRENT REVIEW TO [facility] [phone] PHONE SHERYL [phone]
--- NOTE | 2017-05-12 16:00 | NUR ---
PT SLEEPING AND SHOWS NO S/S OF ACUTE DISTRESS ON ROOM AIR.
--- NOTE | 2017-05-12 17:25 | NUR ---
PT C/O MILD PAIN TO BLE. ADMINISTERED TYLENOL 500 MG PO WILL REASSESS IN ONE HR.
--- NOTE | 2017-05-12 19:20 | NUR ---
GAVE PT REPORT TO NIGHT NURSE AT BEDSIDE. PT ENDORSED IN STABLE CONDITION.
--- NOTE | 2017-05-12 19:30 | NUR ---
ASSUMED CARE OF PATIENT, AWAKE, CONFUSED. NO DISTRESS NOTED. REPOSITIONED. CALL LIGHT WITHIN REACH.
--- NOTE | 2017-05-12 20:00 | NUR ---
VITAL SIGNS STABLE. CARE BOARD UPDATED.
--- NOTE | 2017-05-12 20:30 | NUR ---
DR. VINSON CALLED TO OR HOME TONIGHT.DUE MEDS GIVEN. PERICARE DONE. REPOSITIONED. CALL LIGHT WITHIN REACH.
--- NOTE | 2017-05-12 20:40 | NUR ---
CALLED DR. LUCAS-MINING AND QUARRYING MACHINERY REPAIRER FOR CYNTHIA, PATIENT CAME FROM [facility], CHANGE ORDER TO DC BACK TO [place] IN AM FOR CASE MANAGEMENT TO ARRANGE DC. ELECTRONIC PAGINATION SYSTEM OPERATOR MADE AWARE. CALL LIGHT WITHIN REACH. DUE MEDS GIVEN.
--- NOTE | 2017-05-12 23:47 | NUR ---
SLEEPING WELL. NO DISTRESS. VITAL SIGNS STABLE. CALL LIGHT WITHIN REACH.
[2017-05-13 04:37] VITALS: BP 135/94
--- NOTE | 2017-05-13 04:38 | NUR ---
PERICARE DONE. VITAL SIGNS STABLE. AFEBRILE. NO DISTRESS NOTED. REPOSITIONED. CALL LIGHT WITHIN REACH.
--- NOTE | 2017-05-13 07:31 | NUR ---
ENDORSED CARE AT BEDSIDE WITH GABY HORVATH, PATIENT IN STABLE CONDITION.
--- NOTE | 2017-05-13 07:35 | NUR ---
RECEIVED PT REPORT AT BEDSIDE FROM NIGHT NURSE AT BEDSIDE. PT IS AAOX1 AND SHOWS NO S/S OF ACUTE DISTRESS ON RA. NOTED IV ON THE R FA SL. NOTED HEALED SCAR ON THE LEFT KNEE; OTHERWISE, SKIN IS INTACT. ON TELE MONITORING. SCD'S IN PLACE. FALL RISK PROTOCOL IN PLACE. PT STATES MILD PAIN, WILL ADMINISTER TYLENOL 500 MG PO. PT WAS EXPLAINED POC FOR TODAY AND VERBALIZED UNDERSTANDING HOWEVER NEEDS CONSTANT REINFORCEMENT. THE BED IS IN LOW POSITION WITH BED ALARM ACTIVATED, AND CALL LIGHT WITHIN REACH. WILL CONTINUE TO MONITOR.
[2017-05-13 07:39] VITALS: BP 143/87
[2017-05-13] MEDS: LITHIUM CARBONATE 300 MG TAB PO SCH (09:14)
[2017-05-13] MEDS: BENZTROPINE 1 MG TAB PO SCH (09:14)
[2017-05-13] MEDS: GABAPENTIN 300 MG CAP PO SCH (09:14)
[2017-05-13] MEDS: clonazePAM 0.5 MG TAB PO SCH ×3 (09:25→16:12)
--- NOTE | 2017-05-13 09:25 | NUR ---
ADMINISTERED SCHEDULED MEDICATIONS. WHEN ASKED IF SHE HAD PAIN SHE STATED NO. WILL NOT ADMINISTER TYLENOL 500 MG PO. WILL REASSESS PAIN IN A HR.
--- NOTE | 2017-05-13 10:33 | NUR ---
FAXED CONCURRENT REVIEW TO [facility] [phone] PHONE SHERYL [phone]
[2017-05-13] MEDS ORDERED: CIPR500T4 PO (10:42)
--- NOTE | 2017-05-13 10:50 | NUR ---
FAXED INFORMATION TO [facility] [phone]. AWAITING CALL BACK FROM [facility], LEFT MESSAGE. PER SHERYL FROM [facility], AUTH FOR [facility] IS [id number].
--- NOTE | 2017-05-13 11:00 | NUR ---
PT IS SLEEPING AND SHOWS NO S/S OF ACUTE DISTRESS ON ROOM AIR. TELE MONITOR HR IS 111.
[2017-05-13 12:00] VITALS: BP 142/84
--- NOTE | 2017-05-13 13:00 | NUR ---
SPOKE WITH JONATHAN FROM [place] AND GAVE PT REPORT. CALINE VERBALIZED UNDERSTANDING OF PT CONTINUITY OF CARE. [facility] TO ARRIVE ON UNIT AT 1630.
--- NOTE | 2017-05-13 13:03 | NUR ---
RECEIVED A CALL FROM AVERY FROM [place]. THE PATIENT WILL GO TO ROOM 212B UNDER DR. CHANDLER. CALL REPORT TO [phone] STATION 3. I CALL [facility] AND SPOKE WITH TRACEY. I SET UP [facility] FOR 4:30P.Janki WARREN SENIOR RUBY DEVELOPER NURSE AWARE. I CALLED AVERY AT [place] AND TOLD HER THE TIME OF DRUM HANDLER.
--- NOTE | 2017-05-13 13:30 | NUR ---
PT FAMILY OLE CRYSTAL CALLED AND WAS NOTIFIED OF PT BEING TRANSFERRED TO [place].
--- NOTE | 2017-05-13 13:55 | NUR ---
ADMINISTERED SCHEDULED MEDICATIONS. PT MEDICATIONS WERE CRUSHED AND GIVEN WITH APPLESAUCE AND SIPS OF WATER. PT WAS GIVEN ORAL CARE AFTER WARDS. PT NEEDS MET AT THIS TIME. THE BED IN LOW POSITION WITH CALL LIGHT WITHIN REACH. WILL CONTINUE TO MONITOR.
--- NOTE | 2017-05-13 15:20 | NUR ---
PT FAMILY AT BEDSIDE. PT IS AWAKE AND SMILING. SHOWS NO S/S OF ACUTE DISTRESS ON ROOM AIR. BED IN LOW POSITION WITH CALL LIGHT WITHIN REACH.
[2017-05-13 16:00] VITALS: BP 139/99
--- NOTE | 2017-05-13 17:45 | NUR ---
PT HAS BEEN DISCHARGED. ALL DISCHARGE INSTRUCTIONS GIVEN AND SIGNED BY TWO RN'S. ALL BELONGINGS IN PT'S POSSESSION. IV DISCONTINUED WITH CANNULA INTACT. TELE MONITOR REMOVED. PT LEFT UNIT WITH [facility] IN STABLE CONDITION.
== END 2017-05-13 18:22 | DRG 42 ==
LOC: MED 21:48 → MTU 05-10 00:31 → OBSVTOIN 05-10 19:08
PROVIDERS: ADMIT Hospitalist; ATTEND Hospitalist
DX: G25.9 Extrapyramidal and movement disorder, unspecified (principal); F20.9 Schizophrenia, unspecified; E87.6 Hypokalemia; G24.01 Drug induced subacute dyskinesia; F31.9 Bipolar disorder, unspecified; R27.0 Ataxia, unspecified; F41.9 Anxiety disorder, unspecified; F29 Unspecified psychosis not due to a substance or known physiological condition; Z90.710 Acquired absence of both cervix and uterus
CPT/HCPCS: 36415; 80048; 80053; 80178; 80305; 81001; 85025; 87081; 87086; 87186; 92526; 93005; 97110; 97530; 99285; C1758; G0378; J3480; J7030